=== PATIENT | male | born 1945 | race Asian ===

== ENCOUNTER 2022-10-10 17:24 | Inpatient (IN) | payer MEDICARE, MEDICAID ==
[~2022-10-10] VITALS: Ht 167.6 cm; Wt 72.7 kg
[~2022-10-10 17:24] MED LIST: CARV25TA47 PO; DICL100G31 TP; FURO40TA5 PO; HYDR-4134 PO; LORA10TA7 PO; NITR0.4T49 SL; TRAM50TA3 PO; VIRE PO
[2022-10-10] MEDS ORDERED: ONDANSETRON HCL 4MG/2ML INJ IV STA (17:49)
[2022-10-10] MEDS ORDERED: MORPHINE SULFATE 4 MG/ML CPJ (NOT FOR IM USE) IV STA (17:49)
[2022-10-10] MEDS ORDERED: SODIUM CHLORIDE 0.9% 1,000 ML IV ONE ×2 (18:00→23:00)
[2022-10-10 18:09] LABS: HEMATOCRIT. 30.3 % (42.0-52.0); HEMOGLOBIN. 9.9 g/dL (14.0-18.0); MEAN CORPUSCULAR HEMOGLOBIN 30.4 pg (28.0-32.0); MEAN CORPUSCULAR VOLUME 93.4 fL (80.0-94.0); MEAN PLATELET VOLUME 8.6 fl (7.4-10.4); PLATELET 186 x1000/uL (130-400); RED BLOOD CELL COUNT 3.25 mill/uL (4.7-6.1); RED CELL DISTRIBUTION WIDTH 18.9 % (11.6-14.6)
[2022-10-10 18:18] LABS: CHLORIDE 98 mEq/L (98-107)
[2022-10-10 18:29] LABS: INR 1.2; PARTIAL THROMBOPLASTIN TIME 35.9 sec (23.4-31.0); PROTHROMBIN TIME 12.5 sec (9.6-11.0)
[2022-10-10] MEDS ORDERED: PIPERACILLIN/TAZ 3.375G PREMIX 50 ML IV ONE (19:45)
[2022-10-10] MEDS ORDERED: VANCOMYCIN 1G PREMIX 200 ML IV ONE (19:45)
[2022-10-10] MEDS ORDERED: SODIUM CHLORIDE 0.9% 1000ML BAG (SEPSIS BOLUS) IV ONE (19:45)
[2022-10-10 20:49] LABS: NUCLEATED RED BLOOD CELLS 2 /100 WBC; PLATELET ESTIMATE NORMAL
[2022-10-10] MEDS ORDERED: PIPERACILLIN/TAZ 3.375G PREMIX 50 ML IV NR (22:30)
[2022-10-10] MEDS ORDERED: VANCOMYCIN 1G PREMIX 200 ML IV NR (22:30)
[2022-10-10] MEDS ORDERED: ASPIRIN 81MG TABLET PO ONE (23:30)
[2022-10-11] VITALS (60 sets, daily range): BP systolic 61–149; BP diastolic 40–100
[2022-10-11] MEDS ORDERED: NOREPINEPHRINE 8MG/250ML PMX 250ML IV PRN (00:45)
[2022-10-11] MEDS: HYDROCODONE/ACETAMINOPHEN 10/325MG TABLET PO PRN ×2 (01:59→13:17)
[2022-10-11] MEDS ORDERED: NALOXONE HCL 0.4MG/ML VIAL IV PRN (08:00)
[2022-10-11] MEDS ORDERED: ONDANSETRON HCL 4MG/2ML INJ IV PRN (11:00)
[2022-10-11] MEDS ORDERED: NOREPINEPHRINE 8 MG in DEXTROSE 5% WATER 250 ML IV PRN (11:00)
[2022-10-11] MEDS ORDERED: ENOXAPARIN 60MG/0.6ML SYR SUBCUT SCH (12:00)
[2022-10-11] MEDS: MIDODRINE HCL 5MG TABLET PO SCH ×2 (12:19→16:21)
[2022-10-11] MEDS: NOREPINEPHRINE 32 MG in DEXT 5% WATER 218 ML IV PRN (12:42)
[2022-10-11] MEDS: PHENYLEPHRINE 50 MG in DEXT 5% WATER 245 ML IV PRN ×2 (16:21→21:52)
[2022-10-11 17:38] LABS: HEPATITIS B SURFACE ANTIGEN REACTIVE PEND CONFIR
[2022-10-12] VITALS (98 sets, daily range): BP systolic 62–142; BP diastolic 19–121
[2022-10-12] MEDS: PHENYLEPHRINE 50 MG in DEXT 5% WATER 245 ML IV PRN ×3 (02:26→12:46)
[2022-10-12 04:41] LABS: HEMATOCRIT. 31.3 % (42.0-52.0); HEMOGLOBIN. 9.9 g/dL (14.0-18.0); MEAN CORPUSCULAR HEMOGLOBIN 30.3 pg (28.0-32.0); MEAN CORPUSCULAR VOLUME 96.1 fL (80.0-94.0); MEAN PLATELET VOLUME 8.8 fl (7.4-10.4); PLATELET 200 x1000/uL (130-400); RED BLOOD CELL COUNT 3.25 mill/uL (4.7-6.1); RED CELL DISTRIBUTION WIDTH 20.2 % (11.6-14.6)
[2022-10-12 07:20] LABS: PLATELET ESTIMATE NORMAL
[2022-10-12] MEDS: NOREPINEPHRINE 32 MG in DEXT 5% WATER 218 ML IV PRN (07:30)
[2022-10-12] MEDS: MIDODRINE HCL 5MG TABLET PO SCH ×3 (08:22→16:50)
[2022-10-12 11:05] LABS: BG BASE EXCESS -6.5 mmol/L (-2.0-2.0); BG CARBOXYHEMOGLOBIN 0.1 % (0.5-1.5); BG DEOXYHEMOGLOBIN 1.9 % (0.0-5.0); BG HCO3 ACT 20.4 mmol/L (22.0-26.0); BG METHEMOGLOBIN 0.4 % (0.0-1.5); BG OXYGEN SATURATION 98.1 % (92.0-98.5); BG OXYHEMOGLOBIN 97.6 % (94.0-97.0); BG PCO2 46.7 mmHg (35.0-45.0); BG PH 7.259 (7.350-7.450); BG PO2 121.8 mmHg (75.0-100.0); BG SAMPLE SITE RIGHT RADIAL; BG TOTAL HEMOGLOBIN 11.1 g/dL (12.0-18.0); BG VENT MODE NASAL CANNULA
[2022-10-12] MEDS: ENOXAPARIN 80MG/0.8ML SYR SUBCUT SCH (12:27)
[2022-10-12] MEDS ORDERED: VANCOMYCIN 750MG PREMIX 150 ML IV SCH (13:00)
[2022-10-12] MEDS: ALBUMIN HUMAN 12.5GM/50ML (25%) IV SCH ×2 (13:46→16:50)
[2022-10-12] MEDS: PHENYLEPHRINE 100 MG in DEXT 5% WATER 240 ML IV PRN (16:42)
[2022-10-12] MEDS: HYDROCODONE/ACETAMINOPHEN 10/325MG TABLET PO PRN (20:41)
[2022-10-13] VITALS (96 sets, daily range): BP systolic 79–125; BP diastolic 40–87
[2022-10-13] MEDS: PHENYLEPHRINE 100 MG in DEXT 5% WATER 240 ML IV PRN ×3 (02:28→23:13)
[2022-10-13] MEDS: HYDROCODONE/ACETAMINOPHEN 10/325MG TABLET PO PRN ×3 (04:51→23:43)
[2022-10-13 05:11] LABS: HEMATOCRIT. 28.7 % (42.0-52.0); HEMOGLOBIN. 9.3 g/dL (14.0-18.0); MEAN CORPUSCULAR HEMOGLOBIN 30.8 pg (28.0-32.0); MEAN CORPUSCULAR VOLUME 95.2 fL (80.0-94.0); MEAN PLATELET VOLUME 8.6 fl (7.4-10.4); PLATELET 181 x1000/uL (130-400); RED BLOOD CELL COUNT 3.02 mill/uL (4.7-6.1); RED CELL DISTRIBUTION WIDTH 19.7 % (11.6-14.6)
[2022-10-13] MEDS: ALBUMIN HUMAN 12.5GM/50ML (25%) IV SCH (08:28)
[2022-10-13] MEDS: MIDODRINE HCL 5MG TABLET PO SCH ×3 (08:28→17:39)
[2022-10-13] MEDS: NOREPINEPHRINE 32 MG in DEXT 5% WATER 218 ML IV PRN (10:29)
[2022-10-13] MEDS ORDERED: LIDOCAINE HCL 1% 10 MG/ML 10ML VIAL ONE (10:41)
[2022-10-13 11:01] LABS: NUCLEATED RED BLOOD CELLS 1 /100 WBC; PLATELET ESTIMATE NORMAL
[2022-10-13] MEDS: ENOXAPARIN 80MG/0.8ML SYR SUBCUT SCH (11:35)
[2022-10-13] MEDS: CEFAZOLIN 1000MG PREMIX 50 ML IV SCH (13:54)
[2022-10-13] MEDS ORDERED: EPOETIN ALFA-EPBX 4,000 UNIT/ML VIAL SUBCUT SCH (21:00)
[2022-10-14] VITALS (96 sets, daily range): BP systolic 70–144; BP diastolic 42–92
[2022-10-14] MEDS: TAMSULOSIN HCL 0.4MG SR CAPSULE PO SCH ×3 (00:17→21:00)
[2022-10-14 05:38] LABS: HEMATOCRIT. 27.5 % (42.0-52.0); HEMOGLOBIN. 8.8 g/dL (14.0-18.0); MEAN CORPUSCULAR HEMOGLOBIN 30.4 pg (28.0-32.0); MEAN CORPUSCULAR VOLUME 94.6 fL (80.0-94.0); MEAN PLATELET VOLUME 8.4 fl (7.4-10.4); PLATELET 169 x1000/uL (130-400); RED CELL DISTRIBUTION WIDTH 19.8 % (11.6-14.6)
[2022-10-14 07:17] LABS: PLATELET ESTIMATE NORMAL
[2022-10-14] MEDS: PHENYLEPHRINE 100 MG in DEXT 5% WATER 240 ML IV PRN ×3 (09:25→19:47)
[2022-10-14] MEDS: MIDODRINE HCL 5MG TABLET PO SCH ×3 (09:28→18:02)
[2022-10-14] MEDS: ENOXAPARIN 80MG/0.8ML SYR SUBCUT SCH (13:07)
[2022-10-14] MEDS: CEFAZOLIN 1000MG PREMIX 50 ML IV SCH (13:07)
[2022-10-14] MEDS: SODIUM CHLORIDE 0.9% 1,000 ML IV SCH (15:51)
[2022-10-15] VITALS (99 sets, daily range): BP systolic 70–150; BP diastolic 34–105
[2022-10-15] MEDS: PHENYLEPHRINE 100 MG in DEXT 5% WATER 240 ML IV PRN ×2 (06:45→17:33)
[2022-10-15] MEDS: MIDODRINE HCL 5MG TABLET PO SCH ×3 (08:31→17:15)
[2022-10-15] MEDS: HYDROCODONE/ACETAMINOPHEN 10/325MG TABLET PO PRN ×2 (08:55→17:37)
[2022-10-15] MEDS: SODIUM CHLORIDE 0.9% 1,000 ML IV SCH (12:24)
[2022-10-15] MEDS: ENOXAPARIN 80MG/0.8ML SYR SUBCUT SCH (12:25)
[2022-10-15] MEDS: CEFAZOLIN 1000MG PREMIX 50 ML IV SCH (14:37)
[2022-10-15] MEDS: METOCLOPRAMIDE HCL 10MG/2ML VIAL IV PRN (14:39)
[2022-10-15] MEDS: TAMSULOSIN HCL 0.4MG SR CAPSULE PO SCH (20:11)
[2022-10-16] VITALS (100 sets, daily range): BP systolic 76–123; BP diastolic 40–72
[2022-10-16] MEDS: PHENYLEPHRINE 100 MG in DEXT 5% WATER 240 ML IV PRN ×3 (02:12→20:50)
[2022-10-16 05:05] LABS: BASOPHILS % 0.1 % (0.0-2.0); EOSINOPHILS % 0.7 % (0.0-5.0); HEMATOCRIT. 27.3 % (42.0-52.0); LYMPHOCYTES % 7.2 % (20.0-50.0); MEAN CORPUSCULAR HEMOGLOBIN 30.9 pg (28.0-32.0); MEAN CORPUSCULAR VOLUME 93.4 fL (80.0-94.0); MEAN PLATELET VOLUME 8.5 fl (7.4-10.4); MONOCYTES % 3.6 % (2.0-8.0); NEUTROPHILS % 88.4 % (40.0-76.0); PLATELET 173 x1000/uL (130-400); RED BLOOD CELL COUNT 2.92 mill/uL (4.7-6.1); RED CELL DISTRIBUTION WIDTH 19.3 % (11.6-14.6)
[2022-10-16] MEDS: MIDODRINE HCL 5MG TABLET PO SCH ×3 (08:17→17:02)
[2022-10-16] MEDS: METOCLOPRAMIDE HCL 10MG/2ML VIAL IV PRN (11:09)
[2022-10-16] MEDS: ENOXAPARIN 80MG/0.8ML SYR SUBCUT SCH (11:11)
[2022-10-16] MEDS ORDERED: HYDROCODONE/ACETAMINOPHEN 10/325MG TABLET PO PRN (11:30)
[2022-10-16] MEDS ORDERED: ACETAMINOPHEN 325MG TABLET PO PRN (11:30)
[2022-10-16] MEDS ORDERED: NALOXONE HCL 0.4MG/ML VIAL IV PRN (11:45)
[2022-10-16] MEDS: CEFAZOLIN 1000MG PREMIX 50 ML IV SCH (13:51)
[2022-10-16] MEDS ORDERED: DOCUSATE SODIUM 100MG CAPSULE PO SCH (17:00)
[2022-10-16] MEDS: TAMSULOSIN HCL 0.4MG SR CAPSULE PO SCH (20:49)
[2022-10-16] MEDS ORDERED: EPOETIN ALFA-EPBX 4,000 UNIT/ML VIAL SUBCUT SCH (21:00)
[2022-10-16] MEDS: LACTULOSE 20G/30ML UDC PO SCH (22:28)
[2022-10-17] VITALS (68 sets, daily range): BP systolic 89–119; BP diastolic 45–72
[2022-10-17 05:16] LABS: HEMATOCRIT. 24.4 % (42.0-52.0); HEMOGLOBIN. 8.1 g/dL (14.0-18.0); PLATELET 163 x1000/uL (130-400); RED BLOOD CELL COUNT 2.62 mill/uL (4.7-6.1); RED CELL DISTRIBUTION WIDTH 18.9 % (11.6-14.6)
[2022-10-17] MEDS: LACTULOSE 20G/30ML UDC PO SCH ×3 (06:00→21:48)
[2022-10-17] MEDS: MIDODRINE HCL 5MG TABLET PO SCH ×3 (09:55→17:49)
[2022-10-17] MEDS ORDERED: LIDOCAINE HCL 1% 10 MG/ML 10ML VIAL ONE ×2 (11:09→11:10)
[2022-10-17] MEDS ORDERED: LIDOCAINE HCL/EPINEPHRINE 1%-EPI 1:100,000 20 ML VIAL ONE (11:10)
[2022-10-17] MEDS: CEFAZOLIN 1000MG PREMIX 50 ML IV SCH (13:51)
[2022-10-17] MEDS: ENOXAPARIN 80MG/0.8ML SYR SUBCUT SCH (13:52)
[2022-10-17] MEDS: TAMSULOSIN HCL 0.4MG SR CAPSULE PO SCH (21:48)
[2022-10-18] VITALS (20 sets, daily range): BP systolic 40–92; BP diastolic 25–51
[2022-10-18 04:28] LABS: PLATELET ESTIMATE NORMAL
[2022-10-18 06:07] LABS: CHLORIDE 105 mEq/L (98-107)
[2022-10-18] MEDS: LACTULOSE 20G/30ML UDC PO SCH (06:07)
[2022-10-18] MEDS ORDERED: AMIODARONE HCL 150 MG in DEXT 5% WATER 100 ML IV ONE (07:45)
[2022-10-18] MEDS ORDERED: PHENYLEPHRINE 50 MG in DEXT 5% WATER 245 ML IV PRN (08:15)
[2022-10-18] MEDS ORDERED: SODIUM CHLORIDE 0.9% 250 ML IV ONE ×2 (08:15)
[2022-10-18] MEDS ORDERED: AMIODARONE HCL 900 MG in DEXT 5% WATER 482 ML IV PRN (08:30)
[2022-10-18] MEDS: MIDODRINE HCL 5MG TABLET PO SCH (08:31)
[2022-10-18 09:20] LABS: BG BASE EXCESS -8.7 mmol/L (-2.0-2.0); BG CARBOXYHEMOGLOBIN 0.7 % (0.5-1.5); BG DEOXYHEMOGLOBIN 1.4 % (0.0-5.0); BG FRACTION INSPIRED OXYGEN 44; BG HCO3 ACT 15.1 mmol/L (22.0-26.0); BG METHEMOGLOBIN 0.5 % (0.0-1.5); BG OXYGEN SATURATION 98.6 % (92.0-98.5); BG OXYHEMOGLOBIN 97.4 % (94.0-97.0); BG PCO2 23.8 mmHg (35.0-45.0); BG SAMPLE SITE RIGHT RADIAL; BG TOTAL HEMOGLOBIN 5.3 g/dL (12.0-18.0); BG VENT MODE NASAL CANNULA
[2022-10-18 09:47] LABS: BASOPHILS % 0.1 % (0.0-2.0); EOSINOPHILS % 0.1 % (0.0-5.0); LYMPHOCYTES % 9.9 % (20.0-50.0); MEAN CORPUSCULAR HEMOGLOBIN 30.9 pg (28.0-32.0); MEAN PLATELET VOLUME 8.5 fl (7.4-10.4); MONOCYTES % 4.5 % (2.0-8.0); NEUTROPHILS % 85.4 % (40.0-76.0); PLATELET 233 x1000/uL (130-400); RED BLOOD CELL COUNT 1.82 mill/uL (4.7-6.1); RED CELL DISTRIBUTION WIDTH 19.9 % (11.6-14.6)
[2022-10-18 09:52] LABS: HEMATOCRIT. 18.4 % (42.0-52.0); HEMOGLOBIN. 5.6 g/dL (14.0-18.0)
[2022-10-18] MEDS ORDERED: VASOPRESSIN 20 UNIT in SODIUM CHLORIDE 0.9% 99 ML IV SCH (10:30)
[2022-10-18] MEDS ORDERED: VASOPRESSIN 20 UNIT in SODIUM CHLORIDE 0.9% 99 ML IV PRN (10:30)
[2022-10-18] MEDS ORDERED: PANTOPRAZOLE SODIUM 40 MG/VIAL IV SCH (11:00)
[2022-10-18] MEDS ORDERED: EPOETIN ALFA-EPBX 4,000 UNIT/ML VIAL SUBCUT SCH (21:00)
[2022-10-20 07:08] LABS: HIV SCREEN 4G Non Reactive (Non Reactive)
== END 2022-10-18 11:33 | DRG 871 ==
LOC: ER 17:24 → MICUSO 21:02 → EDBEDREQSVC 21:30 → EDBEDREQ 21:30 → EDBEDREQTM 21:30 → MICUSO 10-11 10:09 → 7WST 10-17 19:18 → CVICU 10-18 08:50
PROVIDERS: ADMIT Internal Medicine; ATTEND Internal Medicine
PROC: 02HV33Z Insertion of Infusion Device into Superior Vena Cava, Percutaneous Approach (ICD-10-PCS; 2022-10-12)
PROC: B548ZZA Ultrasonography of Superior Vena Cava, Guidance (ICD-10-PCS; 2022-10-12)
PROC: 5A1D70Z Performance of Urinary Filtration, Intermittent, Less than 6 Hours Per Day (ICD-10-PCS; 2022-10-12)
PROC: 0JPT3XZ Removal of Tunneled Vascular Access Device from Trunk Subcutaneous Tissue and Fascia, Percutaneous Approach (ICD-10-PCS; 2022-10-13)
PROC: 0JH63XZ Insertion of Tunneled Vascular Access Device into Chest Subcutaneous Tissue and Fascia, Percutaneous Approach (ICD-10-PCS; principal; 2022-10-17)
PROC: 02HV33Z Insertion of Infusion Device into Superior Vena Cava, Percutaneous Approach (ICD-10-PCS; 2022-10-17)
PROC: B5181ZA Fluoroscopy of Superior Vena Cava using Low Osmolar Contrast, Guidance (ICD-10-PCS; 2022-10-17)
PROC: B548ZZA Ultrasonography of Superior Vena Cava, Guidance (ICD-10-PCS; 2022-10-17)
PROC: 5A1D70Z Performance of Urinary Filtration, Intermittent, Less than 6 Hours Per Day (ICD-10-PCS; 2022-10-17)
PROC: 30233N1 Transfusion of Nonautologous Red Blood Cells into Peripheral Vein, Percutaneous Approach (ICD-10-PCS; 2022-10-18)
PROC: 5A12012 Performance of Cardiac Output, Single, Manual (ICD-10-PCS; 2022-10-18)
PROC: 0BH17EZ Insertion of Endotracheal Airway into Trachea, Via Natural or Artificial Opening (ICD-10-PCS; 2022-10-18)
PROC: 5A12012 Performance of Cardiac Output, Single, Manual (ICD-10-PCS; 2022-10-18)
DX: A41.01 Sepsis due to Methicillin susceptible Staphylococcus aureus (principal); N18.6 End stage renal disease; R65.21 Severe sepsis with septic shock; I13.2 Hypertensive heart and chronic kidney disease with heart failure and with stage 5 chronic kidney disease, or end stage renal disease; I48.20 Chronic atrial fibrillation, unspecified; E87.20 Acidosis, unspecified; G93.40 Encephalopathy, unspecified; I50.20 Unspecified systolic (congestive) heart failure; E11.22 Type 2 diabetes mellitus with diabetic chronic kidney disease; B96.89 Other specified bacterial agents as the cause of diseases classified elsewhere; E78.5 Hyperlipidemia, unspecified; Z20.822 Contact with and (suspected) exposure to COVID-19; K76.0 Fatty (change of) liver, not elsewhere classified; D63.1 Anemia in chronic kidney disease; I50.82 Biventricular heart failure; M10.9 Gout, unspecified; I27.20 Pulmonary hypertension, unspecified; R57.8 Other shock; Z88.6 Allergy status to analgesic agent; Z93.3 Colostomy status; Z95.1 Presence of aortocoronary bypass graft; Z99.2 Dependence on renal dialysis; Z85.048 Personal history of other malignant neoplasm of rectum, rectosigmoid junction, and anus; Z79.899 Other long term (current) drug therapy
CPT/HCPCS: 36415; 36558; 36573; 36589; 36600; 71045; 72131; 74176; 76937; 77001; 80048; 80053; 80202; 82375; 82805; 82962; 83605; 83880; 84145; 84484; 85025; 86705; 86709; 86803; 86850; 86900; 86920; 87070; 87077; 87186; 87340; 87389; 87426; 90935; 93005; 93308; 99291; C1725; C1750; C1769; C1887; J0282; J0690; J0885; J1642; J1650; J2270; J2370; J2405; J2543; J2765; J3370; J3490; J7030; J7050; J7060; P9016; P9047; A4315